=== PATIENT | male | born 1955 | race African-American/Black ===

== ENCOUNTER 2016-08-10 19:03 | Emergency (ER) | payer MEDICAID ==
[~2016-08-10] VITALS: Ht 167.6 cm; Wt 67.0 kg
[~2016-08-10 19:03] MED LIST: ALBUTEROL INH; ATEN-42 PO; CARI350T PO; CLOP75TA2 PO; DIPH25CA83 PO; HYDR-523 PO; OMEP20TA80 PO; TAMS-11 PO; TRAM50TA73 PO
[2016-08-10] MEDS ORDERED: ACETAMINOPHEN WITH CODEINE 300/30MG TABLET PO ONE (21:15)
[2016-08-10 22:05] VITALS: BP 140/89
== END 2016-08-10 22:05 | disposition home or self-care (01) ==
LOC: ER 20:15
DX: M54.2 Cervicalgia (principal); G89.29 Other chronic pain; I16.0 Hypertensive urgency; J45.909 Unspecified asthma, uncomplicated; F31.9 Bipolar disorder, unspecified; I10 Essential (primary) hypertension; G43.909 Migraine, unspecified, not intractable, without status migrainosus; Z88.6 Allergy status to analgesic agent; Z88.8 Allergy status to other drugs, medicaments and biological substances; Z79.1 Long term (current) use of non-steroidal anti-inflammatories (NSAID); Z79.899 Other long term (current) drug therapy; Z86.73 Personal history of transient ischemic attack (TIA), and cerebral infarction without residual deficits
CPT/HCPCS: 99283; Z7610

== ENCOUNTER 2017-02-21 11:09 | Emergency (ER) | payer MEDICAID ==
[~2017-02-21] VITALS: Ht 172.7 cm; Wt 60.0 kg
[~2017-02-21 11:09] MED LIST changes: +CLOP75TA15 PO; -CLOP75TA2 PO; +OMEP20TA2 PO; -OMEP20TA80 PO
[2017-02-21 11:21] VITALS: BP 143/100
== END 2017-02-21 18:07 | disposition left against medical advice (07) ==
LOC: ER 11:25
DX: M79.601 Pain in right arm (principal); Z53.21 Procedure and treatment not carried out due to patient leaving prior to being seen by health care provider

== ENCOUNTER 2018-12-14 11:13 | Emergency (ER) | payer MEDICAID ==
[~2018-12-14] VITALS: Ht 170.2 cm; Wt 69.0 kg
[~2018-12-14 11:13] MED LIST changes: -CARI350T PO; +S350 PO; -TRAM50TA73 PO; +TRAM50TA94 PO
[2018-12-14] MEDS ORDERED: HYDROCODONE/ACETAMINOPHEN 5/325MG TABLET PO ONE (14:45)
[2018-12-14 16:46] VITALS: BP 112/82
== END 2018-12-14 16:50 | disposition home or self-care (01) ==
LOC: ER 11:23
DX: R51 Headache (principal); M25.531 Pain in right wrist; R68.84 Jaw pain; M79.641 Pain in right hand; M25.511 Pain in right shoulder; R55 Syncope and collapse; I10 Essential (primary) hypertension; J45.909 Unspecified asthma, uncomplicated; F31.9 Bipolar disorder, unspecified; Z88.6 Allergy status to analgesic agent; Z88.8 Allergy status to other drugs, medicaments and biological substances; Z87.891 Personal history of nicotine dependence; Y00.XXXA Assault by blunt object, initial encounter; Y93.89 Activity, other specified; Y92.89 Other specified places as the place of occurrence of the external cause; Y99.8 Other external cause status
CPT/HCPCS: 70486; 73030; 73110; 73130; 99284

== ENCOUNTER 2019-03-29 21:18 | Inpatient (IN) | payer MEDICAID ==
[~2019-03-29] VITALS: Ht 167.6 cm; Wt 69.0 kg
[~2019-03-29 21:18] MED LIST changes: +CARI-166 PO; -S350 PO
[2019-03-29] MEDS ORDERED: SODIUM CHLORIDE 0.9% 1,000 ML IV ONE (22:31)
[2019-03-29 22:45] LABS: BASOPHILS % 0.9 % (0.0-2.0); EOSINOPHILS % 4.5 % (0.0-5.0); HEMATOCRIT. 39.1 % (42.0-52.0); HEMOGLOBIN. 12.8 g/dL (14.0-18.0); LYMPHOCYTES % 46.5 % (20.0-50.0); MEAN CORPUSCULAR HEMOGLOBIN 27.4 pg (28.0-32.0); MEAN PLATELET VOLUME 8.2 fl (7.4-10.4); MONOCYTES % 9.9 % (2.0-8.0); NEUTROPHILS % 38.2 % (40.0-76.0); PLATELET 196 x1000/uL (130-400); RED BLOOD CELL COUNT 4.65 mill/uL (4.7-6.1)
[2019-03-29 22:47] LABS: CHLORIDE 109 mEq/L (98-107)
[2019-03-29 22:51] LABS: ETHANOL BLOOD < 10 mg/dL
[2019-03-30 00:45] LABS: CLARITY URINE CLEAR (CLEAR); COLOR URINE YELLOW (YELLOW); KETONES URINE TRACE (NEGATIVE); LEUKOCYTE ESTERASE URINE NEGATIVE (NEGATIVE); NITRITE URINE NEGATIVE (NEGATIVE); OCCULT BLOOD URINE 1+ (NEGATIVE); PROTEIN URINE 2+ (NEGATIVE); SPECIFIC GRAVITY URINE 1.035 (1.005-1.030); UROBILINOGEN URINE 0.2 E.U./dL (0.2-1.0)
[2019-03-30 00:57] LABS: *BARBITURATES SCREEN URINE NEGATIVE (NEGATIVE); CANNABINOID URINE SCREEN PRESUMTIVE POSITIVE (NEGATIVE); METHADONE URINE SCREEN NEGATIVE (NEGATIVE); OPIATES URINE SCREEN PRESUMTIVE POSITIVE (NEGATIVE); PHENCYCLIDINE URINE SCREEN NEGATIVE (NEGATIVE)
[2019-03-30 00:58] LABS: *AMPHETAMINES SCREEN URINE NEGATIVE (NEGATIVE); *BENZODIAZEPINES SCREEN URINE NEGATIVE (NEGATIVE); *COCAINE SCREEN URINE PRESUMTIVE POSITIVE (NEGATIVE)
[2019-03-30] MEDS ORDERED: HYDROCODONE/ACETAMINOPHEN 5/325MG TABLET PO ONE (03:15)
[2019-03-30 04:00] VITALS: BP 120/80
[2019-03-30 05:30] VITALS: BP 120/80
[2019-03-30 08:28] VITALS: BP 121/88
[2019-03-30] MEDS ORDERED: ACETAMINOPHEN 325MG TABLET PO PRN (10:30)
[2019-03-30] MEDS: ATENOLOL 25MG TABLET PO SCH (10:30)
[2019-03-30] MEDS ORDERED: TRAMADOL 50MG TABLET PO PRN (10:30)
[2019-03-30] MEDS: CARISOPRODOL 350 MG TABLET PO SCH (10:53)
[2019-03-30] MEDS: CLOPIDOGREL 75MG TABLET PO SCH (10:53)
[2019-03-30] MEDS: HYDROCODONE/ACETAMINOPHEN 5/325MG TABLET PO PRN ×2 (10:54→20:46)
[2019-03-30 11:37] VITALS: BP 125/71
[2019-03-30] MEDS: ENOXAPARIN 40MG/0.4ML SYR SUBCUT SCH (12:44)
[2019-03-30 16:14] VITALS: BP 98/64
[2019-03-30 17:35] LABS: T4 FREE 1.01 ng/dL (0.76-1.46)
[2019-03-30 17:48] LABS: FOLIC ACID (FOLATE) SERUM 13.9 ng/mL (>5.38)
[2019-03-30 20:32] VITALS: BP 135/90
[2019-03-30] MEDS: DIPHENHYDRAMINE 50MG CAPSULE PO SCH (20:44)
[2019-03-30] MEDS: TAMSULOSIN HCL 0.4MG SR CAPSULE PO SCH (20:45)
[2019-03-31 00:42] VITALS: BP 138/83
[2019-03-31 04:00] VITALS: BP 117/78
[2019-03-31] MEDS: HYDROCODONE/ACETAMINOPHEN 5/325MG TABLET PO PRN ×3 (05:20→21:04)
[2019-03-31 07:01] LABS: CHLORIDE 108 mEq/L (98-107)
[2019-03-31 07:26] LABS: HDL CHOLESTEROL 42 mg/dL (40-59); LDL CHOLESTEROL 53 mg/dL (5-100)
[2019-03-31 07:56] LABS: BASOPHILS % 0.7 % (0.0-2.0); EOSINOPHILS % 6.7 % (0.0-5.0); HEMATOCRIT. 39.2 % (42.0-52.0); HEMOGLOBIN. 12.7 g/dL (14.0-18.0); LYMPHOCYTES % 52.5 % (20.0-50.0); MEAN CORPUSCULAR HEMOGLOBIN 27.4 pg (28.0-32.0); MEAN CORPUSCULAR VOLUME 84.3 fL (80.0-94.0); MEAN PLATELET VOLUME 8.6 fl (7.4-10.4); MONOCYTES % 11.7 % (2.0-8.0); NEUTROPHILS % 28.4 % (40.0-76.0); PLATELET 191 x1000/uL (130-400); RED BLOOD CELL COUNT 4.65 mill/uL (4.7-6.1); RED CELL DISTRIBUTION WIDTH 15.9 % (11.6-14.6)
[2019-03-31 08:07] VITALS: BP 125/77
[2019-03-31] MEDS: CARISOPRODOL 350 MG TABLET PO SCH (10:14)
[2019-03-31] MEDS: ATENOLOL 25MG TABLET PO SCH (10:15)
[2019-03-31] MEDS: CLOPIDOGREL 75MG TABLET PO SCH (10:15)
[2019-03-31 12:02] VITALS: BP 92/66
[2019-03-31] MEDS: ENOXAPARIN 40MG/0.4ML SYR SUBCUT SCH (14:42)
[2019-03-31] MEDS: CYANOCOBALAMIN 1000MCG/ML VIAL IM SCH (14:42)
[2019-03-31 16:00] VITALS: BP 121/86
[2019-03-31 20:21] VITALS: BP 124/55
[2019-03-31] MEDS: DIPHENHYDRAMINE 50MG CAPSULE PO SCH (21:02)
[2019-03-31] MEDS: TAMSULOSIN HCL 0.4MG SR CAPSULE PO SCH (21:03)
[2019-03-31] MEDS: ONDANSETRON HCL 4MG/2ML INJ IV PRN (22:30)
[2019-04-01 00:05] VITALS: BP 124/76
[2019-04-01 04:00] VITALS: BP 123/82
[2019-04-01] MEDS: HYDROCODONE/ACETAMINOPHEN 5/325MG TABLET PO PRN ×2 (05:31→11:54)
[2019-04-01 08:00] VITALS: BP 122/82
[2019-04-01] MEDS: CLOPIDOGREL 75MG TABLET PO SCH (09:13)
[2019-04-01] MEDS: CARISOPRODOL 350 MG TABLET PO SCH (09:13)
[2019-04-01] MEDS: ATENOLOL 25MG TABLET PO SCH (09:13)
[2019-04-01] MEDS: CYANOCOBALAMIN 1000MCG/ML VIAL IM SCH (09:14)
[2019-04-01] MEDS: ENOXAPARIN 40MG/0.4ML SYR SUBCUT SCH (11:53)
[2019-04-01 12:00] VITALS: BP 113/80
[2019-04-01] MEDS ORDERED: DEXAMETHASONE 4MG/ML 1ML VIAL IV SCH (13:00)
[2019-04-01] MEDS: HYDROCODONE/ACETAMINOPHEN 10/325MG TABLET PO PRN ×2 (14:57→20:25)
[2019-04-01 16:00] VITALS: BP 118/78
[2019-04-01 20:00] VITALS: BP 122/52
[2019-04-01] MEDS: TAMSULOSIN HCL 0.4MG SR CAPSULE PO SCH (20:22)
[2019-04-01] MEDS: DIPHENHYDRAMINE 50MG CAPSULE PO SCH (20:23)
[2019-04-01] MEDS: DEXAMETHASONE 4MG/ML 1ML VIAL IV SCH (21:42)
[2019-04-01] MEDS: LACTULOSE 20G/30ML UDC PO SCH (21:42)
[2019-04-02] VITALS: BP 109/66
[2019-04-02] MEDS: HYDROCODONE/ACETAMINOPHEN 10/325MG TABLET PO PRN ×4 (00:38→23:28)
[2019-04-02] MEDS: DEXAMETHASONE 4MG/ML 1ML VIAL IV SCH ×4 (03:02→21:42)
[2019-04-02 04:00] VITALS: BP 111/63
[2019-04-02] MEDS: LACTULOSE 20G/30ML UDC PO SCH ×3 (05:47→21:42)
[2019-04-02] MEDS ORDERED: MORPHINE SULFATE 2 MG/ML CPJ (NOT FOR IM USE) IV NR (06:45)
[2019-04-02 08:00] VITALS: BP 157/79
[2019-04-02] MEDS ORDERED: REGADENOSON 0.4 MG/5 ML IV ONE ×2 (08:47→09:15)
[2019-04-02] MEDS ORDERED: REGADENOSON 0.4 MG/5 ML IV NR (09:15)
[2019-04-02] MEDS: CARISOPRODOL 350 MG TABLET PO SCH (10:57)
[2019-04-02] MEDS: CYANOCOBALAMIN 1000MCG/ML VIAL IM SCH (10:59)
[2019-04-02] MEDS: ATENOLOL 25MG TABLET PO SCH (11:00)
[2019-04-02 12:00] VITALS: BP 130/74
[2019-04-02 16:00] VITALS: BP 113/74
[2019-04-02 20:00] VITALS: BP 96/55
[2019-04-02] MEDS: DIPHENHYDRAMINE 50MG CAPSULE PO SCH (21:43)
[2019-04-02] MEDS: TAMSULOSIN HCL 0.4MG SR CAPSULE PO SCH (21:45)
[2019-04-03] VITALS: BP 106/67
[2019-04-03] MEDS: DEXAMETHASONE 4MG/ML 1ML VIAL IV SCH ×4 (02:34→21:46)
[2019-04-03] MEDS: HYDROCODONE/ACETAMINOPHEN 10/325MG TABLET PO PRN ×5 (03:52→21:57)
[2019-04-03 04:00] VITALS: BP 111/69
[2019-04-03] MEDS: LACTULOSE 20G/30ML UDC PO SCH ×3 (06:13→21:46)
[2019-04-03 08:00] VITALS: BP 115/76
[2019-04-03 08:03] LABS: HEMOGLOBIN. 12.8 g/dL (14.0-18.0); MEAN CORPUSCULAR VOLUME 84.3 fL (80.0-94.0); MEAN PLATELET VOLUME 8.9 fl (7.4-10.4); PLATELET 219 x1000/uL (130-400); RED BLOOD CELL COUNT 4.75 mill/uL (4.7-6.1)
[2019-04-03 08:17] LABS: CHLORIDE 108 mEq/L (98-107)
[2019-04-03] MEDS: CARISOPRODOL 350 MG TABLET PO SCH (09:01)
[2019-04-03] MEDS: ATENOLOL 25MG TABLET PO SCH (09:03)
[2019-04-03] MEDS: CYANOCOBALAMIN 1000MCG/ML VIAL IM SCH (09:05)
[2019-04-03 12:00] VITALS: BP 109/67
[2019-04-03 13:48] LABS: NUCLEATED RED BLOOD CELLS 1 /100 WBC; PLATELET ESTIMATE NORMAL
[2019-04-03 16:00] VITALS: BP 111/75
[2019-04-03] MEDS: ONDANSETRON HCL 4MG/2ML INJ IV PRN (17:39)
[2019-04-03 20:00] VITALS: BP 122/74
[2019-04-03 20:16] LABS: TOTAL IRON BINDING CAPACITY 296 ug/dL (250-450)
[2019-04-03 20:26] LABS: FERRITIN 27 ng/mL (22-322)
[2019-04-03 20:37] LABS: HEPATITIS B SURFACE ANTIGEN NEGATIVE
[2019-04-03 21:06] LABS: HEPATITIS A AB IGM NEGATIVE (NEGATIVE)
[2019-04-03] MEDS: DIPHENHYDRAMINE 50MG CAPSULE PO SCH (21:46)
[2019-04-03] MEDS: TAMSULOSIN HCL 0.4MG SR CAPSULE PO SCH (21:49)
[2019-04-04] VITALS: BP 129/66
[2019-04-04 04:00] VITALS: BP 99/57
[2019-04-04] MEDS: DEXAMETHASONE 4MG/ML 1ML VIAL IV SCH ×4 (04:00→21:06)
[2019-04-04] MEDS: LACTULOSE 20G/30ML UDC PO SCH ×2 (05:59→14:00)
[2019-04-04 08:00] VITALS: BP 124/67
[2019-04-04] MEDS: CYANOCOBALAMIN 1000MCG/ML VIAL IM SCH (10:06)
[2019-04-04] MEDS: CARISOPRODOL 350 MG TABLET PO SCH (10:06)
[2019-04-04] MEDS: HYDROCODONE/ACETAMINOPHEN 10/325MG TABLET PO PRN ×3 (10:09→21:06)
[2019-04-04] MEDS: ATENOLOL 25MG TABLET PO SCH (10:09)
[2019-04-04] MEDS: ONDANSETRON HCL 4MG/2ML INJ IV PRN (10:18)
[2019-04-04 12:00] VITALS: BP 115/75
[2019-04-04 16:00] VITALS: BP 121/78
[2019-04-04 20:25] VITALS: BP 126/90
[2019-04-04] MEDS: TAMSULOSIN HCL 0.4MG SR CAPSULE PO SCH (21:06)
[2019-04-04] MEDS: DIPHENHYDRAMINE 50MG CAPSULE PO SCH (22:47)
[2019-04-05] VITALS (69 sets, daily range): BP systolic 89–173; BP diastolic 37–116
[2019-04-05] MEDS: DEXAMETHASONE 4MG/ML 1ML VIAL IV SCH ×4 (02:54→23:53)
[2019-04-05] MEDS: HYDROCODONE/ACETAMINOPHEN 10/325MG TABLET PO PRN (03:14)
[2019-04-05] MEDS ORDERED: THROMBIN (BOVINE) 5000 UNITS/VIAL TOP ONE (06:09)
[2019-04-05] MEDS ORDERED: NORMAL SALINE 0.9% 10 ML SYR ONE (06:09)
[2019-04-05] MEDS ORDERED: LIDOCAINE HCL/EPINEPHRINE 1%-EPI 1:100,000 20 ML VIAL ONE (06:10)
[2019-04-05] MEDS ORDERED: BACITRACIN 50,000 UNITS/VIAL ONE (06:10)
[2019-04-05] MEDS ORDERED: CLINDAMYCIN 900 MG PREMIX 50 ML IV ONE (07:00)
[2019-04-05] MEDS: ATENOLOL 25MG TABLET PO SCH (09:00)
[2019-04-05] MEDS: CARISOPRODOL 350 MG TABLET PO SCH (09:00)
[2019-04-05] MEDS ORDERED: LACTULOSE 20G/30ML UDC PO SCH (09:00)
[2019-04-05] MEDS ORDERED: HYDROMORPHONE HCL/PF 2MG/ML CPJ IV PRN (09:15)
[2019-04-05] MEDS ORDERED: LABETALOL 5MG/ML SYR 20 MG/4 ML SYRINGE IV PRN (09:15)
[2019-04-05] MEDS ORDERED: ONDANSETRON HCL 4MG/2ML INJ IV PRN (09:15)
[2019-04-05] MEDS ORDERED: MEPERIDINE HCL/PF 25MG/ML CPJ IV PRN (09:15)
[2019-04-05] MEDS ORDERED: ONDANSETRON INJ IV PRN (10:00)
[2019-04-05] MEDS ORDERED: NALOXONE INJ IV PRN (10:00)
[2019-04-05] MEDS ORDERED: HYDROMORPHONE PCA 10MG/50ML IV PRN (10:00)
[2019-04-05] MEDS: NICARDIPINE 100 MG in SODIUM CHLORIDE 0.9% 60 ML IV PRN ×2 (10:05→22:45)
[2019-04-05] MEDS: DEXT 5%/LACTATED RINGERS 1,000 ML IV SCH ×3 (11:07→21:15)
[2019-04-05] MEDS: ASCORBIC ACID 500 MG TABLET PO SCH ×2 (12:59→17:25)
[2019-04-05] MEDS: FERROUS SULFATE 325MG TABLET PO SCH ×2 (12:59→17:23)
[2019-04-05] MEDS: LACTULOSE 20G/30ML UDC PO SCH ×3 (12:59→17:23)
[2019-04-05] MEDS: CYANOCOBALAMIN 1000MCG/ML VIAL IM SCH (13:00)
[2019-04-05] MEDS: CLINDAMYCIN 600MG PREMIX 50 ML IV SCH ×2 (14:30→21:15)
[2019-04-05] MEDS: ONDANSETRON HCL 4MG/2ML INJ IV PRN (14:30)
[2019-04-05] MEDS: DIPHENHYDRAMINE INJ IV PRN ×2 (18:13→22:45)
[2019-04-05] MEDS: DIPHENHYDRAMINE 50MG CAPSULE PO SCH (19:54)
[2019-04-05] MEDS: TAMSULOSIN HCL 0.4MG SR CAPSULE PO SCH (19:54)
[2019-04-06] VITALS (52 sets, daily range): BP systolic 72–136; BP diastolic 21–93
[2019-04-06] MEDS: ASCORBIC ACID 500 MG TABLET PO SCH ×3 (05:45→17:19)
[2019-04-06] MEDS: FERROUS SULFATE 325MG TABLET PO SCH ×3 (05:45→17:19)
[2019-04-06] MEDS: DEXAMETHASONE 4MG/ML 1ML VIAL IV SCH (05:45)
[2019-04-06] MEDS: CLINDAMYCIN 600MG PREMIX 50 ML IV SCH ×2 (06:03→14:14)
[2019-04-06] MEDS: DEXT 5%/LACTATED RINGERS 1,000 ML IV SCH (08:39)
[2019-04-06] MEDS: CYANOCOBALAMIN 1000MCG/ML VIAL IM SCH (08:49)
[2019-04-06] MEDS: LACTULOSE 20G/30ML UDC PO SCH ×3 (08:49→17:19)
[2019-04-06] MEDS: CARISOPRODOL 350 MG TABLET PO SCH (08:51)
[2019-04-06] MEDS: ATENOLOL 25MG TABLET PO SCH (08:51)
[2019-04-06] MEDS ORDERED: DEXAMETHASONE 4MG/ML 1ML VIAL IV SCH (09:15)
[2019-04-06] MEDS ORDERED: CYCLOBENZAPRINE 10MG TABLET PO PRN (12:00)
[2019-04-06] MEDS: ONDANSETRON HCL 4MG/2ML INJ IV PRN (16:04)
[2019-04-06] MEDS: HYDROCODONE/ACETAMINOPHEN 5/325MG TABLET PO PRN (16:06)
[2019-04-06] MEDS: DIPHENHYDRAMINE 50MG CAPSULE PO SCH (21:12)
[2019-04-06] MEDS: TAMSULOSIN HCL 0.4MG SR CAPSULE PO SCH (21:13)
[2019-04-06] MEDS: MORPHINE SULFATE 2 MG/ML CPJ (NOT FOR IM USE) IV PRN (21:13)
[2019-04-07] VITALS: BP 152/88
[2019-04-07] MEDS: DEXT 5%/LACTATED RINGERS 1,000 ML IV SCH (00:49)
[2019-04-07] MEDS: HYDROCODONE/ACETAMINOPHEN 5/325MG TABLET PO PRN ×2 (00:50→06:33)
[2019-04-07 04:00] VITALS: BP 141/94
[2019-04-07] MEDS: MORPHINE SULFATE 2 MG/ML CPJ (NOT FOR IM USE) IV PRN (04:01)
[2019-04-07] MEDS ORDERED: HYDROCODONE/APAP 7.5/325MG 1 TAB TABLET PO PRN (07:45)
[2019-04-07 08:00] VITALS: BP 141/88
[2019-04-07] MEDS: FERROUS SULFATE 325MG TABLET PO SCH ×3 (08:39→18:19)
[2019-04-07] MEDS: CARISOPRODOL 350 MG TABLET PO SCH (08:39)
[2019-04-07] MEDS: ATENOLOL 25MG TABLET PO SCH (08:42)
[2019-04-07] MEDS: ASCORBIC ACID 500 MG TABLET PO SCH ×3 (08:43→18:19)
[2019-04-07] MEDS: LACTULOSE 20G/30ML UDC PO SCH ×5 (08:43→20:00)
[2019-04-07] MEDS ORDERED: MORPHINE SULFATE 2 MG/ML CPJ (NOT FOR IM USE) IV PRN (10:00)
[2019-04-07 12:00] VITALS: BP 117/74
[2019-04-07] MEDS ORDERED: BISACODYL 10MG SUPP PR PRN (15:15)
[2019-04-07] MEDS: HYDROCODONE/ACETAMINOPHEN 10/325MG TABLET PO PRN ×2 (15:30→22:39)
[2019-04-07 16:00] VITALS: BP 129/79
[2019-04-07] MEDS: DOCUSATE SODIUM 100MG CAPSULE PO SCH (18:19)
[2019-04-07 20:00] VITALS: BP 139/83
[2019-04-07] MEDS: DIPHENHYDRAMINE 50MG CAPSULE PO SCH (20:18)
[2019-04-07] MEDS: TAMSULOSIN HCL 0.4MG SR CAPSULE PO SCH (20:18)
[2019-04-07] MEDS: CARISOPRODOL 350 MG TABLET PO PRN (20:18)
[2019-04-08] VITALS: BP 158/78
[2019-04-08 04:00] VITALS: BP 137/75
[2019-04-08] MEDS: HYDROCODONE/ACETAMINOPHEN 10/325MG TABLET PO PRN ×3 (04:46→17:18)
[2019-04-08 08:00] VITALS: BP 153/110
[2019-04-08] MEDS ORDERED: CLOPIDOGREL 75MG TABLET PO SCH (09:00)
[2019-04-08] MEDS: LACTULOSE 20G/30ML UDC PO SCH ×4 (09:00→17:00)
[2019-04-08] MEDS: ASCORBIC ACID 500 MG TABLET PO SCH ×3 (09:33→17:18)
[2019-04-08] MEDS: CARISOPRODOL 350 MG TABLET PO SCH (09:33)
[2019-04-08] MEDS: FERROUS SULFATE 325MG TABLET PO SCH ×3 (09:34→17:19)
[2019-04-08] MEDS: DOCUSATE SODIUM 100MG CAPSULE PO SCH ×2 (09:34→17:19)
[2019-04-08] MEDS: ATENOLOL 25MG TABLET PO SCH (09:37)
[2019-04-08 12:00] VITALS: BP 115/73
[2019-04-08] MEDS ORDERED: POTASSIUM CHLORIDE 20MEQ TABLET SR PO ONE (15:00)
[2019-04-08 16:00] VITALS: BP 112/80
[2019-04-08 20:00] VITALS: BP 145/91
[2019-04-08] MEDS: CARISOPRODOL 350 MG TABLET PO PRN (20:01)
[2019-04-08] MEDS: TAMSULOSIN HCL 0.4MG SR CAPSULE PO SCH (21:02)
[2019-04-08] MEDS: DIPHENHYDRAMINE 50MG CAPSULE PO SCH (21:02)
[2019-04-08] MEDS ORDERED: MORPHINE SULFATE 2 MG/ML CPJ (NOT FOR IM USE) IV PRN (22:30)
[2019-04-09] VITALS (7 sets, daily range): BP systolic 95–155; BP diastolic 62–90
[2019-04-09] MEDS: HYDROCODONE/ACETAMINOPHEN 10/325MG TABLET PO PRN (03:05)
[2019-04-09] MEDS ORDERED: LORAZEPAM 2MG/ML CPJ IM PRN (06:30)
[2019-04-09] MEDS: ASCORBIC ACID 500 MG TABLET PO SCH ×3 (07:50→17:50)
[2019-04-09] MEDS: FERROUS SULFATE 325MG TABLET PO SCH ×3 (07:50→17:50)
[2019-04-09] MEDS ORDERED: LORAZEPAM 2MG/ML CPJ IM NR (08:00)
[2019-04-09] MEDS: CARISOPRODOL 350 MG TABLET PO SCH (09:00)
[2019-04-09] MEDS: LACTULOSE 20G/30ML UDC PO SCH ×3 (09:00→17:00)
[2019-04-09] MEDS: ATENOLOL 25MG TABLET PO SCH (09:00)
[2019-04-09] MEDS: DOCUSATE SODIUM 100MG CAPSULE PO SCH ×2 (09:00→17:00)
[2019-04-09 10:40] LABS: BASOPHILS % 0.4 % (0.0-2.0); EOSINOPHILS % 1.9 % (0.0-5.0); HEMATOCRIT. 36.3 % (42.0-52.0); HEMOGLOBIN. 11.7 g/dL (14.0-18.0); MEAN CORPUSCULAR HEMOGLOBIN 27.1 pg (28.0-32.0); MEAN CORPUSCULAR VOLUME 84.3 fL (80.0-94.0); MEAN PLATELET VOLUME 8.3 fl (7.4-10.4); MONOCYTES % 12.4 % (2.0-8.0); NEUTROPHILS % 63.3 % (40.0-76.0); PLATELET 175 x1000/uL (130-400); RED BLOOD CELL COUNT 4.31 mill/uL (4.7-6.1); RED CELL DISTRIBUTION WIDTH 16.2 % (11.6-14.6)
[2019-04-09 10:45] LABS: CHLORIDE 104 mEq/L (98-107)
[2019-04-09] MEDS ORDERED: HYDROCODONE/ACETAMINOPHEN 5/325MG TABLET PO PRN (17:45)
[2019-04-09] MEDS: DIPHENHYDRAMINE 50MG CAPSULE PO SCH (20:10)
[2019-04-09] MEDS: TAMSULOSIN HCL 0.4MG SR CAPSULE PO SCH (21:00)
[2019-04-09] MEDS: CARISOPRODOL 350 MG TABLET PO PRN (23:02)
[2019-04-10] MEDS: HYDROCODONE/ACETAMINOPHEN 10/325MG TABLET PO PRN (02:45)
[2019-04-10 04:00] VITALS: BP 100/59
[2019-04-13] MEDS ORDERED: CYANOCOBALAMIN 1000MCG/ML VIAL IM SCH (09:00)
[2019-04-14 06:09] LABS: 25-HYDROXY VITAMIN D3 12 ng/mL (.)
== END 2019-04-10 05:16 | disposition left against medical advice (07) | DRG 321 ==
LOC: ER 21:18 → 6WST 03-30 03:00 → EDBEDREQ 03-30 03:05 → EDBEDREQTM 03-30 03:05 → EDBEDREQDT 03-30 03:05 → ENRESERV 03-30 03:48 → 6WST 04-01 00:30 → MICUNO 04-05 09:22 → 6EST 04-06 14:25
PROVIDERS: ADMIT Internal Medicine; ATTEND Internal Medicine
PROC: 02HV33Z Insertion of Infusion Device into Superior Vena Cava, Percutaneous Approach (ICD-10-PCS; principal; 2019-04-05)
PROC: 0RG2071 Fusion of 2 or more Cervical Vertebral Joints with Autologous Tissue Substitute, Posterior Approach, Posterior Column, Open Approach (ICD-10-PCS; 2019-04-05)
PROC: B548ZZA Ultrasonography of Superior Vena Cava, Guidance (ICD-10-PCS; 2019-04-05)
PROC: 01N10ZZ Release Cervical Nerve, Open Approach (ICD-10-PCS; 2019-04-05)
PROC: 4A11X4G Monitoring of Peripheral Nervous Electrical Activity, Intraoperative, External Approach (ICD-10-PCS; 2019-04-05)
DX: M48.02 Spinal stenosis, cervical region (principal); G82.50 Quadriplegia, unspecified; G93.40 Encephalopathy, unspecified; G95.89 Other specified diseases of spinal cord; E72.20 Disorder of urea cycle metabolism, unspecified; I50.22 Chronic systolic (congestive) heart failure; I11.0 Hypertensive heart disease with heart failure; M47.12 Other spondylosis with myelopathy, cervical region; R13.10 Dysphagia, unspecified; R41.4 Neurologic neglect syndrome; E53.8 Deficiency of other specified B group vitamins; F14.10 Cocaine abuse, uncomplicated; J45.909 Unspecified asthma, uncomplicated; D72.819 Decreased white blood cell count, unspecified; D64.9 Anemia, unspecified; J44.9 Chronic obstructive pulmonary disease, unspecified; R74.0 Nonspecific elevation of levels of transaminase and lactic acid dehydrogenase [LDH]; R47.1 Dysarthria and anarthria; M47.22 Other spondylosis with radiculopathy, cervical region; M19.90 Unspecified osteoarthritis, unspecified site; M50.11 Cervical disc disorder with radiculopathy, high cervical region; Z53.29 Procedure and treatment not carried out because of patient's decision for other reasons; D72.829 Elevated white blood cell count, unspecified; M51.26 Other intervertebral disc displacement, lumbar region; R47.01 Aphasia; Z87.891 Personal history of nicotine dependence; Z88.8 Allergy status to other drugs, medicaments and biological substances; Z79.899 Other long term (current) drug therapy; I69.354 Hemiplegia and hemiparesis following cerebral infarction affecting left non-dominant side; Z91.19 Patient's noncompliance with other medical treatment and regimen
CPT/HCPCS: 36415; 70544; 70553; 71045; 72040; 72141; 76000; 76700; 76937; 78452; 80048; 80061; 80076; 80305; 80320; 81003; 82140; 82306; 82607; 82728; 82746; 82962; 83036; 83540; 83550; 84439; 84443; 84481; 84484; 86705; 86709; 86803; 87340; 92610; 93005; 93017; 93306; 93880; 93970; 96360; 96361; 97116; 97162; 97164; 97166; 97168; 97530; 97535; 99285; A9500; C1725; C1893; J1100; J1170; J1200; J1650; J2060; J2250; J2270; J2405; J2704; J2710; J2785; J3010; J3420; J3490; J7030; J7050; J7121; L0172; Q0163; G0480

== ENCOUNTER 2019-04-12 12:56 | Emergency (ER) | payer MEDICAID ==
[2019-04-12] MEDS ORDERED: SODIUM CHLORIDE 0.9% 1,000 ML IV ONE (14:58)
[2019-04-12] MEDS ORDERED: MORPHINE SULFATE 4 MG/ML CPJ (NOT FOR IM USE) IV STA (14:58)
[2019-04-12 15:10] LABS: BASOPHILS % 0.4 % (0.0-2.0); EOSINOPHILS % 0.9 % (0.0-5.0); HEMATOCRIT. 35.5 % (42.0-52.0); HEMOGLOBIN. 11.8 g/dL (14.0-18.0); LYMPHOCYTES % 14.8 % (20.0-50.0); MEAN CORPUSCULAR HEMOGLOBIN 27.7 pg (28.0-32.0); MEAN CORPUSCULAR VOLUME 83.1 fL (80.0-94.0); MEAN PLATELET VOLUME 7.9 fl (7.4-10.4); MONOCYTES % 7.5 % (2.0-8.0); NEUTROPHILS % 76.4 % (40.0-76.0); PLATELET 225 x1000/uL (130-400); RED BLOOD CELL COUNT 4.27 mill/uL (4.7-6.1); RED CELL DISTRIBUTION WIDTH 15.7 % (11.6-14.6)
[2019-04-12 15:15] LABS: CHLORIDE 101 mEq/L (98-107); INR 0.9; PROTHROMBIN TIME 9.3 sec (9.6-11.0)
[2019-04-12 18:01] VITALS: BP 115/75
== END 2019-04-12 18:03 | disposition home or self-care (01) ==
LOC: ER 12:56 → CANBEDREQ 18:32
DX: M54.2 Cervicalgia (principal); M19.90 Unspecified osteoarthritis, unspecified site; J45.909 Unspecified asthma, uncomplicated; I10 Essential (primary) hypertension; F12.10 Cannabis abuse, uncomplicated; Z87.891 Personal history of nicotine dependence; Z79.899 Other long term (current) drug therapy; Z88.6 Allergy status to analgesic agent; Z88.8 Allergy status to other drugs, medicaments and biological substances
CPT/HCPCS: 36415; 71045; 72125; 80053; 83605; 85025; 85610; 96374; 99284; J2270; J7030

== ENCOUNTER 2019-04-13 06:16 | Inpatient (IN) | payer MEDICAID ==
[~2019-04-13] VITALS: Ht 332.7 cm; Wt 78.0 kg
[~2019-04-13 06:16] MED LIST changes: -CARI-166 PO; +CARI350T28 PO
[2019-04-13] MEDS ORDERED: MORPHINE SULFATE 2 MG/ML CPJ (NOT FOR IM USE) IV ONE ×2 (08:45→12:15)
[2019-04-13 09:55] LABS: BASOPHILS % 0.6 % (0.0-2.0); EOSINOPHILS % 1.1 % (0.0-5.0); HEMATOCRIT. 37.1 % (42.0-52.0); HEMOGLOBIN. 12.2 g/dL (14.0-18.0); LYMPHOCYTES % 16.3 % (20.0-50.0); MEAN CORPUSCULAR HEMOGLOBIN 27.4 pg (28.0-32.0); MEAN CORPUSCULAR VOLUME 83.7 fL (80.0-94.0); MEAN PLATELET VOLUME 7.5 fl (7.4-10.4); MONOCYTES % 8.8 % (2.0-8.0); NEUTROPHILS % 73.2 % (40.0-76.0); PLATELET 255 x1000/uL (130-400); RED BLOOD CELL COUNT 4.44 mill/uL (4.7-6.1); RED CELL DISTRIBUTION WIDTH 15.8 % (11.6-14.6)
[2019-04-13 10:01] LABS: CHLORIDE 104 mEq/L (98-107)
[2019-04-13 21:40] VITALS: BP 143/97
[2019-04-13] MEDS ORDERED: ACETAMINOPHEN 325MG TABLET PO PRN (23:00)
[2019-04-13] MEDS: MORPHINE SULFATE 2 MG/ML CPJ (NOT FOR IM USE) IV PRN (23:16)
[2019-04-13 23:39] VITALS: BP 143/97
[2019-04-14] VITALS: BP 109/68
[2019-04-14 04:00] VITALS: BP 125/66
[2019-04-14] MEDS: MORPHINE SULFATE 2 MG/ML CPJ (NOT FOR IM USE) IV PRN ×3 (04:08→18:57)
[2019-04-14 07:31] LABS: BASOPHILS % 0.4 % (0.0-2.0); EOSINOPHILS % 2.6 % (0.0-5.0); HEMATOCRIT. 33.8 % (42.0-52.0); HEMOGLOBIN. 10.9 g/dL (14.0-18.0); MEAN CORPUSCULAR HEMOGLOBIN 27.1 pg (28.0-32.0); MEAN PLATELET VOLUME 7.5 fl (7.4-10.4); MONOCYTES % 10.5 % (2.0-8.0); NEUTROPHILS % 52.5 % (40.0-76.0); PLATELET 243 x1000/uL (130-400); RED BLOOD CELL COUNT 4.02 mill/uL (4.7-6.1); RED CELL DISTRIBUTION WIDTH 15.4 % (11.6-14.6)
[2019-04-14 07:41] LABS: CHLORIDE 108 mEq/L (98-107)
[2019-04-14 08:00] VITALS: BP 119/78
[2019-04-14] MEDS: LISINOPRIL 5MG TABLET PO SCH (08:42)
[2019-04-14] MEDS: ENOXAPARIN 40MG/0.4ML SYR SUBCUT SCH (08:42)
[2019-04-14] MEDS ORDERED: CYCL5TAB MT (09:00)
[2019-04-14] MEDS ORDERED: GABA-290 PO (09:00)
[2019-04-14] MEDS ORDERED: LISI40TA4 MT (09:00)
[2019-04-14] MEDS ORDERED: ALPR2TAB2 MT (09:00)
[2019-04-14] MEDS ORDERED: KETOROLAC 60MG/2ML VIAL IM ONE (10:00)
[2019-04-14] MEDS ORDERED: MORPHINE SULFATE 4 MG/ML CPJ (NOT FOR IM USE) IV NR (10:00)
[2019-04-14 12:00] VITALS: BP 116/80
[2019-04-14] MEDS: HYDROCODONE/ACETAMINOPHEN 5/325MG TABLET PO PRN ×2 (15:27→20:22)
[2019-04-14 16:00] VITALS: BP 111/64
[2019-04-14] MEDS: DOCUSATE SODIUM 100MG CAPSULE PO PRN (16:35)
[2019-04-14] MEDS ORDERED: MEDICATION NOT ON FORMULARY EA (Cyclobenzaprine Hcl 1 TAB) MT PRN (17:45)
[2019-04-14] MEDS ORDERED: ALBUTEROL INH PRN (17:45)
[2019-04-14] MEDS ORDERED: ALBUTEROL (0.083%) 2.5MG/3ML NEB HHN PRN (18:15)
[2019-04-14 20:00] VITALS: BP 125/86
[2019-04-14] MEDS: GABAPENTIN 300MG CAPSULE PO SCH (21:30)
[2019-04-14] MEDS: TAMSULOSIN HCL 0.4MG SR CAPSULE PO SCH (21:30)
[2019-04-15] VITALS: BP 109/83
[2019-04-15] MEDS: HYDROCODONE/ACETAMINOPHEN 5/325MG TABLET PO PRN ×5 (00:13→22:20)
[2019-04-15] MEDS: MORPHINE SULFATE 2 MG/ML CPJ (NOT FOR IM USE) IV PRN ×3 (03:37→16:28)
[2019-04-15 04:00] VITALS: BP 105/74
[2019-04-15 08:00] VITALS: BP 92/58
[2019-04-15 08:03] LABS: *AMPHETAMINES SCREEN URINE NEGATIVE (NEGATIVE); *BARBITURATES SCREEN URINE NEGATIVE (NEGATIVE); *BENZODIAZEPINES SCREEN URINE NEGATIVE (NEGATIVE); *COCAINE SCREEN URINE PRESUMTIVE POSITIVE (NEGATIVE)
[2019-04-15 08:04] LABS: CANNABINOID URINE SCREEN PRESUMTIVE POSITIVE (NEGATIVE); METHADONE URINE SCREEN NEGATIVE (NEGATIVE); OPIATES URINE SCREEN PRESUMTIVE POSITIVE (NEGATIVE); PHENCYCLIDINE URINE SCREEN NEGATIVE (NEGATIVE)
[2019-04-15] MEDS: LISINOPRIL 5MG TABLET PO SCH (09:00)
[2019-04-15] MEDS: ENOXAPARIN 40MG/0.4ML SYR SUBCUT SCH (09:07)
[2019-04-15] MEDS: GABAPENTIN 300MG CAPSULE PO SCH ×3 (09:07→22:19)
[2019-04-15 12:00] VITALS: BP 121/82
[2019-04-15 16:00] VITALS: BP 122/83
[2019-04-15] MEDS: DEXAMETHASONE 4MG/ML 1ML VIAL IV SCH (18:07)
[2019-04-15 20:00] VITALS: BP 130/80
[2019-04-15] MEDS: CYCLOBENZAPRINE 10MG TABLET PO PRN (20:25)
[2019-04-15] MEDS: TAMSULOSIN HCL 0.4MG SR CAPSULE PO SCH (22:19)
[2019-04-16] VITALS: BP 101/52
[2019-04-16] MEDS: DEXAMETHASONE 4MG/ML 1ML VIAL IV SCH ×4 (01:18→17:17)
[2019-04-16] MEDS: MORPHINE SULFATE 2 MG/ML CPJ (NOT FOR IM USE) IV PRN ×4 (01:19→20:35)
[2019-04-16] MEDS: HYDROCODONE/ACETAMINOPHEN 5/325MG TABLET PO PRN ×3 (03:59→18:40)
[2019-04-16 04:00] VITALS: BP 99/62
[2019-04-16] MEDS: GABAPENTIN 300MG CAPSULE PO SCH ×3 (06:47→20:32)
[2019-04-16 08:00] VITALS: BP 114/77
[2019-04-16] MEDS: LISINOPRIL 5MG TABLET PO SCH (08:46)
[2019-04-16] MEDS ORDERED: SODIUM BICARBONATE 4% (2.4MEQ) 5ML VIAL IV ONE (10:37)
[2019-04-16] MEDS ORDERED: LIDOCAINE HCL 1% 20ML VIAL (Pyxis) INJ ONE (10:37)
[2019-04-16 10:40] LABS: INR 0.9; PARTIAL THROMBOPLASTIN TIME 29.6 sec (23.4-31.0); PROTHROMBIN TIME 9.4 sec (9.6-11.0)
[2019-04-16 12:00] VITALS: BP 118/84
[2019-04-16 16:00] VITALS: BP 107/76
[2019-04-16 20:00] VITALS: BP 113/75
[2019-04-16] MEDS: TAMSULOSIN HCL 0.4MG SR CAPSULE PO SCH (20:33)
[2019-04-17] VITALS: BP 106/66
[2019-04-17] MEDS: DEXAMETHASONE 4MG/ML 1ML VIAL IV SCH ×4 (00:11→17:40)
[2019-04-17] MEDS: HYDROCODONE/ACETAMINOPHEN 5/325MG TABLET PO PRN ×4 (00:12→17:41)
[2019-04-17] MEDS: MORPHINE SULFATE 2 MG/ML CPJ (NOT FOR IM USE) IV PRN ×4 (02:53→23:01)
[2019-04-17 04:00] VITALS: BP 95/62
[2019-04-17] MEDS: GABAPENTIN 300MG CAPSULE PO SCH ×3 (06:39→21:04)
[2019-04-17 08:00] VITALS: BP 117/80
[2019-04-17] MEDS: LISINOPRIL 5MG TABLET PO SCH (08:58)
[2019-04-17] MEDS: CYCLOBENZAPRINE 10MG TABLET PO PRN (09:07)
[2019-04-17 11:39] VITALS: BP 104/62
[2019-04-17 16:00] VITALS: BP 108/68
[2019-04-17 20:00] VITALS: BP 131/71
[2019-04-17] MEDS: TAMSULOSIN HCL 0.4MG SR CAPSULE PO SCH (21:04)
[2019-04-18] VITALS: BP 114/71
[2019-04-18] MEDS: HYDROCODONE/ACETAMINOPHEN 5/325MG TABLET PO PRN ×3 (02:23→15:20)
[2019-04-18 04:00] VITALS: BP 101/66
[2019-04-18] MEDS: GABAPENTIN 300MG CAPSULE PO SCH ×3 (05:29→20:37)
[2019-04-18] MEDS: MORPHINE SULFATE 2 MG/ML CPJ (NOT FOR IM USE) IV PRN ×3 (05:30→20:22)
[2019-04-18 08:00] VITALS: BP 108/74
[2019-04-18] MEDS: CYCLOBENZAPRINE 10MG TABLET PO PRN (08:24)
[2019-04-18] MEDS: LISINOPRIL 5MG TABLET PO SCH (08:24)
[2019-04-18 12:00] VITALS: BP 102/69
[2019-04-18 16:00] VITALS: BP 106/69
[2019-04-18 20:00] VITALS: BP 98/62
[2019-04-18] MEDS: TAMSULOSIN HCL 0.4MG SR CAPSULE PO SCH (20:37)
[2019-04-18] MEDS: ONDANSETRON HCL 4MG/2ML INJ IV PRN (23:28)
[2019-04-18] MEDS: ZOLPIDEM TARTRATE 5MG TABLET PO PRN (23:29)
[2019-04-19] VITALS: BP 85/57
[2019-04-19] MEDS: MORPHINE SULFATE 4 MG/ML CPJ (NOT FOR IM USE) IV PRN ×4 (00:15→22:03)
[2019-04-19 04:00] VITALS: BP 81/52
[2019-04-19] MEDS: GABAPENTIN 300MG CAPSULE PO SCH ×3 (05:43→20:28)
[2019-04-19 07:19] LABS: BASOPHILS % 0.8 % (0.0-2.0); EOSINOPHILS % 1.3 % (0.0-5.0); HEMATOCRIT. 31.7 % (42.0-52.0); HEMOGLOBIN. 10.2 g/dL (14.0-18.0); LYMPHOCYTES % 42.8 % (20.0-50.0); MEAN CORPUSCULAR HEMOGLOBIN 26.8 pg (28.0-32.0); MEAN CORPUSCULAR VOLUME 83.8 fL (80.0-94.0); MEAN PLATELET VOLUME 7.2 fl (7.4-10.4); MONOCYTES % 7.4 % (2.0-8.0); NEUTROPHILS % 47.7 % (40.0-76.0); PLATELET 353 x1000/uL (130-400); RED BLOOD CELL COUNT 3.79 mill/uL (4.7-6.1); RED CELL DISTRIBUTION WIDTH 16.1 % (11.6-14.6)
[2019-04-19 07:30] LABS: CHLORIDE 106 mEq/L (98-107)
[2019-04-19 07:51] LABS: PHOSPHORUS 2.9 mg/dL (2.5-4.9)
[2019-04-19 08:00] VITALS: BP 99/67
[2019-04-19] MEDS: LISINOPRIL 5MG TABLET PO SCH (08:12)
[2019-04-19] MEDS: HYDROCODONE/ACETAMINOPHEN 5/325MG TABLET PO PRN (08:16)
[2019-04-19] MEDS ORDERED: DEXT 5%/LACTATED RINGERS 1,000 ML IV SCH (08:30)
[2019-04-19] MEDS: DEXAMETHASONE 4MG/ML 1ML VIAL IV SCH ×2 (11:42→17:17)
[2019-04-19] MEDS: OXYCODONE HCL 5MG TABLET PO PRN ×2 (11:42→17:17)
[2019-04-19 12:00] VITALS: BP 134/83
[2019-04-19 16:00] VITALS: BP 106/65
[2019-04-19] MEDS: ONDANSETRON HCL 4MG/2ML INJ IV PRN (16:00)
[2019-04-19 20:00] VITALS: BP 125/88
[2019-04-19] MEDS: TAMSULOSIN HCL 0.4MG SR CAPSULE PO SCH (20:29)
[2019-04-19] MEDS: DEXT 5%/LACTATED RINGERS 1,000 ML IV SCH (20:30)
[2019-04-19] MEDS: ZOLPIDEM TARTRATE 5MG TABLET PO PRN (21:58)
[2019-04-20] VITALS (50 sets, daily range): BP systolic 100–146; BP diastolic 58–102
[2019-04-20] MEDS: DEXAMETHASONE 4MG/ML 1ML VIAL IV SCH ×4 (01:29→17:26)
[2019-04-20] MEDS: MORPHINE SULFATE 4 MG/ML CPJ (NOT FOR IM USE) IV PRN ×4 (01:34→12:06)
[2019-04-20] MEDS: ONDANSETRON HCL 4MG/2ML INJ IV PRN ×3 (04:12→20:47)
[2019-04-20] MEDS: GABAPENTIN 300MG CAPSULE PO SCH ×3 (05:34→20:53)
[2019-04-20] MEDS: DEXT 5%/LACTATED RINGERS 1,000 ML IV SCH ×2 (06:02→11:25)
[2019-04-20] MEDS ORDERED: THROMBIN (BOVINE) 5000 UNITS/VIAL TOP ONE ×2 (08:01→08:02)
[2019-04-20] MEDS ORDERED: BACITRACIN 15GM TUBE TOP ONE (08:01)
[2019-04-20] MEDS ORDERED: BACITRACIN 50,000 UNITS/VIAL ONE ×2 (08:02→08:03)
[2019-04-20] MEDS ORDERED: LIDOCAINE HCL/EPINEPHRINE 1%-EPI 1:100,000 20 ML VIAL ONE (08:02)
[2019-04-20] MEDS: LISINOPRIL 5MG TABLET PO SCH (08:21)
[2019-04-20] MEDS ORDERED: FENTANYL CITRATE/PF 50MCG/ML 2ML VIAL ONE ×2 (09:43→09:44)
[2019-04-20] MEDS ORDERED: MIDAZOLAM HCL 2 MG/2 ML VIAL ONE (09:44)
[2019-04-20] MEDS ORDERED: NEOSTIGMINE METHYLSULFATE 1MG/ML 10 ML VIAL ONE (09:44)
[2019-04-20] MEDS ORDERED: ROCURONIUM BROMIDE 10MG/ML VIAL 5ML IV ONE (09:44)
[2019-04-20] MEDS ORDERED: GLYCOPYRROLATE 0.2 MG/ML 2ML VIAL ONE (09:44)
[2019-04-20] MEDS ORDERED: PROPOFOL 200MG/20ML VIAL IV ONE (09:44)
[2019-04-20] MEDS ORDERED: DEXAMETHASONE 4MG/ML 1ML VIAL ONE (09:47)
[2019-04-20] MEDS ORDERED: ONDANSETRON HCL 4MG/2ML INJ ONE (09:48)
[2019-04-20] MEDS ORDERED: CLINDAMYCIN 900 MG PREMIX 50 ML IV ONE (09:56)
[2019-04-20] MEDS ORDERED: HYDROMORPHONE HCL/PF 2MG/ML (OR) ONE (10:13)
[2019-04-20] MEDS ORDERED: NITROPRUSSIDE 100 MG in DEXT 5% WATER 250 ML IV PRN (11:00)
[2019-04-20] MEDS ORDERED: CLINDAMYCIN 600 MG in DEXTROSE 5% WATER 50 ML IV SCH (11:00)
[2019-04-20] MEDS ORDERED: HYDROMORPHONE PCA 10MG/50ML IV PRN (12:00)
[2019-04-20] MEDS ORDERED: ONDANSETRON INJ IV PRN (12:00)
[2019-04-20] MEDS ORDERED: NALOXONE INJ IV PRN (12:00)
[2019-04-20] MEDS: DIPHENHYDRAMINE 50MG/ML VIAL IV PRN (12:34)
[2019-04-20] MEDS ORDERED: CLINDAMYCIN 600MG PREMIX 50 ML IV SCH (14:00)
[2019-04-20] MEDS ORDERED: VANCOMYCIN 1250MG in DEXTROSE 5% WATER 250ML IV SCH (16:00)
[2019-04-20] MEDS: TAMSULOSIN HCL 0.4MG SR CAPSULE PO SCH (20:48)
[2019-04-21] VITALS (92 sets, daily range): BP systolic 90–146; BP diastolic 40–108
[2019-04-21] MEDS: DEXAMETHASONE 4MG/ML 1ML VIAL IV SCH ×3 (00:33→12:20)
[2019-04-21] MEDS: DIPHENHYDRAMINE 50MG/ML VIAL IV PRN ×3 (03:15→23:57)
[2019-04-21] MEDS: DEXT 5%/LACTATED RINGERS 1,000 ML IV SCH ×3 (03:23→17:18)
[2019-04-21] MEDS ORDERED: VANCOMYCIN 1 G PREMIX 200 ML IV SCH (04:00)
[2019-04-21] MEDS: GABAPENTIN 300MG CAPSULE PO SCH ×3 (06:50→22:14)
[2019-04-21] MEDS: LISINOPRIL 5MG TABLET PO SCH (08:04)
[2019-04-21] MEDS: ONDANSETRON HCL 4MG/2ML INJ IV PRN ×2 (08:09→23:56)
[2019-04-21 11:08] LABS: HEMATOCRIT. 32.7 % (42.0-52.0); HEMOGLOBIN. 10.7 g/dL (14.0-18.0); MEAN CORPUSCULAR HEMOGLOBIN 27.3 pg (28.0-32.0); MEAN CORPUSCULAR VOLUME 83.3 fL (80.0-94.0); MEAN PLATELET VOLUME 7.6 fl (7.4-10.4); PLATELET 380 x1000/uL (130-400); RED BLOOD CELL COUNT 3.92 mill/uL (4.7-6.1); RED CELL DISTRIBUTION WIDTH 16.3 % (11.6-14.6)
[2019-04-21 11:40] LABS: CHLORIDE 104 mEq/L (98-107)
[2019-04-21 11:46] LABS: PHOSPHORUS 3.1 mg/dL (2.5-4.9)
[2019-04-21] MEDS: CYCLOBENZAPRINE 10MG TABLET PO PRN ×2 (12:20→17:18)
[2019-04-21] MEDS: VANCOMYCIN 1 G PREMIX 200 ML IV SCH (17:18)
[2019-04-21 19:03] LABS: PLATELET ESTIMATE NORMAL
[2019-04-21] MEDS: TAMSULOSIN HCL 0.4MG SR CAPSULE PO SCH (22:15)
[2019-04-22] VITALS (45 sets, daily range): BP systolic 83–138; BP diastolic 50–90
[2019-04-22] MEDS: ONDANSETRON HCL 4MG/2ML INJ IV PRN (04:50)
[2019-04-22] MEDS: DEXT 5%/LACTATED RINGERS 1,000 ML IV SCH ×2 (04:51→13:28)
[2019-04-22 05:15] LABS: BASOPHILS % 0.1 % (0.0-2.0); HEMATOCRIT. 31.7 % (42.0-52.0); HEMOGLOBIN. 10.2 g/dL (14.0-18.0); LYMPHOCYTES % 11.9 % (20.0-50.0); MEAN CORPUSCULAR HEMOGLOBIN 26.7 pg (28.0-32.0); MEAN CORPUSCULAR VOLUME 82.7 fL (80.0-94.0); MEAN PLATELET VOLUME 7.1 fl (7.4-10.4); MONOCYTES % 7.1 % (2.0-8.0); NEUTROPHILS % 80.9 % (40.0-76.0); PLATELET 335 x1000/uL (130-400); RED BLOOD CELL COUNT 3.83 mill/uL (4.7-6.1); RED CELL DISTRIBUTION WIDTH 16.2 % (11.6-14.6)
[2019-04-22 05:22] LABS: CHLORIDE 104 mEq/L (98-107)
[2019-04-22 05:32] LABS: VANCOMYCIN TROUGH 12.2 ug/mL (5.0-10.0)
[2019-04-22] MEDS: VANCOMYCIN 1 G PREMIX 200 ML IV SCH (06:47)
[2019-04-22] MEDS: GABAPENTIN 300MG CAPSULE PO SCH ×3 (06:48→22:52)
[2019-04-22] MEDS ORDERED: OMEPRAZOLE 20MG CAPSULE EXTENDED RELEASE PO SCH (08:30)
[2019-04-22] MEDS: LISINOPRIL 5MG TABLET PO SCH (08:39)
[2019-04-22] MEDS: CYCLOBENZAPRINE 10MG TABLET PO PRN ×2 (08:39→13:29)
[2019-04-22] MEDS: DOCUSATE SODIUM 100MG CAPSULE PO PRN ×2 (08:51→13:29)
[2019-04-22] MEDS: LIDOCAINE 5% PATCH TOP PRN (11:07)
[2019-04-22] MEDS: OXYCODONE HCL 5MG TABLET PO PRN ×2 (15:53→20:04)
[2019-04-22] MEDS: OMEPRAZOLE 20MG CAPSULE EXTENDED RELEASE PO SCH (15:53)
[2019-04-22] MEDS ORDERED: VANCOMYCIN 1250MG in DEXTROSE 5% WATER 250ML IV SCH (18:00)
[2019-04-22] MEDS: MORPHINE SULFATE 4 MG/ML CPJ (NOT FOR IM USE) IV PRN (18:43)
[2019-04-22] MEDS: CARISOPRODOL 350 MG TABLET PO PRN (23:00)
[2019-04-22] MEDS: TAMSULOSIN HCL 0.4MG SR CAPSULE PO SCH (23:01)
[2019-04-23] VITALS: BP 107/66
[2019-04-23] MEDS: MORPHINE SULFATE 4 MG/ML CPJ (NOT FOR IM USE) IV PRN ×4 (00:22→21:57)
[2019-04-23] MEDS: DEXT 5%/LACTATED RINGERS 1,000 ML IV SCH ×3 (00:42→19:00)
[2019-04-23] MEDS: VANCOMYCIN 1,250 MG in DEXT 5% WATER 250 ML IV SCH ×2 (02:21→14:44)
[2019-04-23] MEDS: OXYCODONE HCL 5MG TABLET PO PRN ×5 (02:22→23:02)
[2019-04-23 04:00] VITALS: BP 110/73
[2019-04-23] MEDS: GABAPENTIN 300MG CAPSULE PO SCH ×3 (06:22→21:39)
[2019-04-23] MEDS: OMEPRAZOLE 20MG CAPSULE EXTENDED RELEASE PO SCH (06:22)
[2019-04-23 08:00] VITALS: BP 108/75
[2019-04-23] MEDS: LISINOPRIL 5MG TABLET PO SCH (08:43)
[2019-04-23 12:00] VITALS: BP 113/68
[2019-04-23] MEDS: CARISOPRODOL 350 MG TABLET PO PRN (12:05)
[2019-04-23 16:00] VITALS: BP 120/88
[2019-04-23 20:00] VITALS: BP 111/74
[2019-04-23] MEDS: TAMSULOSIN HCL 0.4MG SR CAPSULE PO SCH (21:39)
[2019-04-23] MEDS: ZOLPIDEM TARTRATE 5MG TABLET PO PRN (21:57)
[2019-04-23] MEDS: ONDANSETRON HCL 4MG/2ML INJ IV PRN (21:57)
[2019-04-23] MEDS: DIPHENHYDRAMINE 50MG/ML VIAL IV PRN (21:57)
[2019-04-23] MEDS: LIDOCAINE 5% PATCH TOP PRN (22:29)
[2019-04-24] VITALS: BP 95/64
[2019-04-24] MEDS: VANCOMYCIN 1,250 MG in DEXT 5% WATER 250 ML IV SCH ×2 (01:34→14:04)
[2019-04-24] MEDS: OXYCODONE HCL 5MG TABLET PO PRN ×4 (03:26→20:58)
[2019-04-24 04:00] VITALS: BP 105/61
[2019-04-24] MEDS: DIPHENHYDRAMINE 50MG/ML VIAL IV PRN ×3 (04:02→18:37)
[2019-04-24] MEDS: ONDANSETRON HCL 4MG/2ML INJ IV PRN ×3 (04:02→22:09)
[2019-04-24] MEDS: DEXT 5%/LACTATED RINGERS 1,000 ML IV SCH ×2 (04:08→16:24)
[2019-04-24] MEDS: DOCUSATE SODIUM 100MG CAPSULE PO PRN ×2 (05:59→11:37)
[2019-04-24] MEDS: OMEPRAZOLE 20MG CAPSULE EXTENDED RELEASE PO SCH (05:59)
[2019-04-24] MEDS: GABAPENTIN 300MG CAPSULE PO SCH ×3 (05:59→21:00)
[2019-04-24] MEDS ORDERED: MORPHINE SULFATE 4 MG/ML CPJ (NOT FOR IM USE) IV PRN (06:15)
[2019-04-24 08:00] VITALS: BP 116/66
[2019-04-24] MEDS: LISINOPRIL 5MG TABLET PO SCH (08:34)
[2019-04-24] MEDS ORDERED: LIDOCAINE 5% PATCH TOP SCH (09:00)
[2019-04-24] MEDS: MORPHINE SULFATE 4 MG/ML CPJ (NOT FOR IM USE) IV PRN ×2 (11:45→17:19)
[2019-04-24 11:50] VITALS: BP 105/63
[2019-04-24] MEDS ORDERED: BISACODYL 10MG SUPP PR PRN (13:30)
[2019-04-24] MEDS: POLYETHYLENE GLYCOL 3350 (17GM) 1 DOSE PACK PO SCH (14:04)
[2019-04-24 16:00] VITALS: BP 110/66
[2019-04-24] MEDS: CARISOPRODOL 350 MG TABLET PO PRN (16:24)
[2019-04-24] MEDS ORDERED: DOCUSATE SODIUM 100MG CAPSULE PO SCH (17:00)
[2019-04-24 20:00] VITALS: BP 112/60
[2019-04-24] MEDS: TAMSULOSIN HCL 0.4MG SR CAPSULE PO SCH (20:57)
[2019-04-25] VITALS: BP 120/80
[2019-04-25] MEDS: MORPHINE SULFATE 4 MG/ML CPJ (NOT FOR IM USE) IV PRN ×4 (00:28→23:31)
[2019-04-25] MEDS: VANCOMYCIN 1,250 MG in DEXT 5% WATER 250 ML IV SCH ×2 (02:37→14:13)
[2019-04-25] MEDS: DEXT 5%/LACTATED RINGERS 1,000 ML IV SCH ×2 (02:37→10:15)
[2019-04-25] MEDS: OXYCODONE HCL 5MG TABLET PO PRN ×4 (02:38→16:21)
[2019-04-25 04:00] VITALS: BP 115/60
[2019-04-25] MEDS: GABAPENTIN 300MG CAPSULE PO SCH ×3 (05:06→22:50)
[2019-04-25] MEDS: ONDANSETRON HCL 4MG/2ML INJ IV PRN ×3 (05:06→20:42)
[2019-04-25] MEDS: OMEPRAZOLE 20MG CAPSULE EXTENDED RELEASE PO SCH (05:53)
[2019-04-25] MEDS: POLYETHYLENE GLYCOL 3350 (17GM) 1 DOSE PACK PO SCH (07:34)
[2019-04-25 08:00] VITALS: BP 126/80
[2019-04-25] MEDS: LIDOCAINE 5% PATCH TOP SCH ×2 (08:43→08:56)
[2019-04-25] MEDS: LISINOPRIL 5MG TABLET PO SCH (08:44)
[2019-04-25 12:00] VITALS: BP 109/91
[2019-04-25] MEDS: CARISOPRODOL 350 MG TABLET PO PRN (15:04)
[2019-04-25 16:00] VITALS: BP 110/74
[2019-04-25 20:00] VITALS: BP 110/75
[2019-04-25] MEDS: DIPHENHYDRAMINE 50MG/ML VIAL IV PRN (20:04)
[2019-04-25] MEDS: TAMSULOSIN HCL 0.4MG SR CAPSULE PO SCH (20:04)
[2019-04-26] VITALS: BP 114/73
[2019-04-26] MEDS: DEXT 5%/LACTATED RINGERS 1,000 ML IV SCH ×3 (01:14→17:18)
[2019-04-26] MEDS: VANCOMYCIN 1,250 MG in DEXT 5% WATER 250 ML IV SCH ×2 (01:14→14:13)
[2019-04-26] MEDS: OXYCODONE HCL 5MG TABLET PO PRN ×5 (01:14→21:49)
[2019-04-26] MEDS: MORPHINE SULFATE 4 MG/ML CPJ (NOT FOR IM USE) IV PRN ×2 (03:29→05:43)
[2019-04-26] MEDS: DIPHENHYDRAMINE 50MG/ML VIAL IV PRN ×2 (03:42→18:52)
[2019-04-26 04:00] VITALS: BP 102/63
[2019-04-26] MEDS: OMEPRAZOLE 20MG CAPSULE EXTENDED RELEASE PO SCH (05:11)
[2019-04-26] MEDS: GABAPENTIN 300MG CAPSULE PO SCH ×3 (05:12→22:22)
[2019-04-26 07:07] LABS: CHLORIDE 102 mEq/L (98-107)
[2019-04-26] MEDS: POLYETHYLENE GLYCOL 3350 (17GM) 1 DOSE PACK PO SCH (08:23)
[2019-04-26] MEDS: LIDOCAINE 5% PATCH TOP SCH (08:23)
[2019-04-26] MEDS: LISINOPRIL 5MG TABLET PO SCH (08:24)
[2019-04-26] MEDS: ONDANSETRON HCL 4MG/2ML INJ IV PRN ×2 (08:39→18:46)
[2019-04-26 12:00] VITALS: BP 111/63
[2019-04-26] MEDS: CARISOPRODOL 350 MG TABLET PO PRN (14:23)
[2019-04-26 16:00] VITALS: BP 116/76
[2019-04-26 20:00] VITALS: BP 114/76
[2019-04-26] MEDS: TAMSULOSIN HCL 0.4MG SR CAPSULE PO SCH (21:32)
[2019-04-26] MEDS: FAMOTIDINE 20MG TABLET PO SCH (22:22)
[2019-04-27] VITALS: BP 120/77
[2019-04-27] MEDS: VANCOMYCIN 1,250 MG in DEXT 5% WATER 250 ML IV SCH ×2 (02:28→14:00)
[2019-04-27 04:00] VITALS: BP 110/71
[2019-04-27] MEDS: OXYCODONE HCL 5MG TABLET PO PRN ×5 (04:34→22:09)
[2019-04-27] MEDS: GABAPENTIN 300MG CAPSULE PO SCH ×3 (06:27→21:57)
[2019-04-27 07:52] LABS: BASOPHILS % 0.7 % (0.0-2.0); EOSINOPHILS % 3.7 % (0.0-5.0); HEMOGLOBIN. 9.8 g/dL (14.0-18.0); LYMPHOCYTES % 29.5 % (20.0-50.0); MEAN CORPUSCULAR HEMOGLOBIN 27.1 pg (28.0-32.0); MEAN CORPUSCULAR VOLUME 82.8 fL (80.0-94.0); MEAN PLATELET VOLUME 7.4 fl (7.4-10.4); MONOCYTES % 14.5 % (2.0-8.0); NEUTROPHILS % 51.6 % (40.0-76.0); PLATELET 268 x1000/uL (130-400); RED BLOOD CELL COUNT 3.63 mill/uL (4.7-6.1); RED CELL DISTRIBUTION WIDTH 16.1 % (11.6-14.6)
[2019-04-27 07:58] LABS: CHLORIDE 103 mEq/L (98-107)
[2019-04-27 08:00] VITALS: BP 121/79
[2019-04-27] MEDS: POLYETHYLENE GLYCOL 3350 (17GM) 1 DOSE PACK PO SCH (08:36)
[2019-04-27] MEDS: FAMOTIDINE 20MG TABLET PO SCH ×2 (08:36→21:57)
[2019-04-27] MEDS: LISINOPRIL 5MG TABLET PO SCH (08:36)
[2019-04-27] MEDS: LIDOCAINE 5% PATCH TOP SCH (08:37)
[2019-04-27 12:00] VITALS: BP 113/74
[2019-04-27] MEDS: LACTULOSE 20G/30ML UDC PO SCH ×3 (14:00→21:57)
[2019-04-27 16:00] VITALS: BP 129/89
[2019-04-27] MEDS: DOCUSATE SODIUM 100MG CAPSULE PO SCH (17:22)
[2019-04-27] MEDS: CARISOPRODOL 350 MG TABLET PO PRN (17:26)
[2019-04-27] MEDS: ONDANSETRON HCL 4MG/2ML INJ IV PRN (19:11)
[2019-04-27 20:00] VITALS: BP 124/91
[2019-04-27] MEDS: DIPHENHYDRAMINE 50MG/ML VIAL IV PRN (21:02)
[2019-04-27] MEDS: TAMSULOSIN HCL 0.4MG SR CAPSULE PO SCH (21:57)
[2019-04-28] VITALS: BP 117/80
[2019-04-28] MEDS: VANCOMYCIN 1,250 MG in DEXT 5% WATER 250 ML IV SCH ×2 (01:00→15:16)
[2019-04-28] MEDS: ONDANSETRON HCL 4MG/2ML INJ IV PRN ×2 (01:07→21:42)
[2019-04-28 08:00] VITALS: BP 135/93
[2019-04-28] MEDS: POLYETHYLENE GLYCOL 3350 (17GM) 1 DOSE PACK PO SCH ×2 (09:00→09:20)
[2019-04-28] MEDS: LISINOPRIL 5MG TABLET PO SCH (09:20)
[2019-04-28] MEDS: FAMOTIDINE 20MG TABLET PO SCH (09:20)
[2019-04-28] MEDS: DOCUSATE SODIUM 100MG CAPSULE PO SCH ×2 (09:20→17:00)
[2019-04-28] MEDS: LIDOCAINE 5% PATCH TOP SCH (09:22)
[2019-04-28] MEDS: OXYCODONE HCL 5MG TABLET PO PRN ×3 (09:29→20:38)
[2019-04-28] MEDS: OMEPRAZOLE 20MG CAPSULE EXTENDED RELEASE PO SCH (10:26)
[2019-04-28 12:00] VITALS: BP 119/86
[2019-04-28] MEDS: CARISOPRODOL 350 MG TABLET PO PRN (12:21)
[2019-04-28] MEDS: LACTULOSE 20G/30ML UDC PO SCH ×2 (15:16→19:00)
[2019-04-28] MEDS: GABAPENTIN 300MG CAPSULE PO SCH ×2 (15:17→21:41)
[2019-04-28] MEDS: BISACODYL 10MG SUPP PR SCH (15:17)
[2019-04-28 16:00] VITALS: BP 121/84
[2019-04-28 20:00] VITALS: BP 114/80
[2019-04-28] MEDS: TAMSULOSIN HCL 0.4MG SR CAPSULE PO SCH (20:38)
[2019-04-28] MEDS: DIPHENHYDRAMINE 50MG/ML VIAL IV PRN (22:13)
[2019-04-29] VITALS: BP 108/63
[2019-04-29] MEDS: VANCOMYCIN 1,250 MG in DEXT 5% WATER 250 ML IV SCH ×2 (01:49→15:24)
[2019-04-29 04:00] VITALS: BP 121/73
[2019-04-29] MEDS: DIPHENHYDRAMINE 50MG/ML VIAL IV PRN ×3 (04:29→22:27)
[2019-04-29] MEDS: OMEPRAZOLE 20MG CAPSULE EXTENDED RELEASE PO SCH (05:50)
[2019-04-29] MEDS: GABAPENTIN 300MG CAPSULE PO SCH (05:50)
[2019-04-29] MEDS: OXYCODONE HCL 5MG TABLET PO PRN ×4 (06:28→20:17)
[2019-04-29 08:00] VITALS: BP 103/69
[2019-04-29] MEDS: POLYETHYLENE GLYCOL 3350 (17GM) 1 DOSE PACK PO SCH (08:48)
[2019-04-29] MEDS: LISINOPRIL 5MG TABLET PO SCH (08:48)
[2019-04-29] MEDS: DOCUSATE SODIUM 100MG CAPSULE PO SCH ×2 (08:49→16:47)
[2019-04-29] MEDS: BISACODYL 10MG SUPP PR SCH (08:49)
[2019-04-29] MEDS: LIDOCAINE 5% PATCH TOP SCH (08:51)
[2019-04-29] MEDS: CARISOPRODOL 350 MG TABLET PO PRN ×2 (10:30→22:27)
[2019-04-29 12:00] VITALS: BP 105/64
[2019-04-29] MEDS ORDERED: LACTULOSE 20G/30ML UDC PO PRN (14:15)
[2019-04-29] MEDS ORDERED: NA PHOS,M-B/NA PHOS,DI-BA ENEMA 118ML PR NR (15:30)
[2019-04-29 16:44] VITALS: BP 110/65
[2019-04-29 20:00] VITALS: BP 103/73
[2019-04-29] MEDS: TAMSULOSIN HCL 0.4MG SR CAPSULE PO SCH (20:16)
[2019-04-29] MEDS: GABAPENTIN 400MG CAPSULE PO SCH (22:29)
[2019-04-30] VITALS: BP 107/74
[2019-04-30] MEDS: ONDANSETRON HCL 4MG/2ML INJ IV PRN (00:53)
[2019-04-30] MEDS: OXYCODONE HCL 5MG TABLET PO PRN ×5 (00:54→21:23)
[2019-04-30 04:00] VITALS: BP 104/71
[2019-04-30] MEDS: DIPHENHYDRAMINE 50MG/ML VIAL IV PRN ×3 (04:35→18:44)
[2019-04-30] MEDS: GABAPENTIN 400MG CAPSULE PO SCH ×3 (06:12→20:35)
[2019-04-30] MEDS: OMEPRAZOLE 20MG CAPSULE EXTENDED RELEASE PO SCH (06:12)
[2019-04-30] MEDS: DOCUSATE SODIUM 100MG CAPSULE PO SCH ×2 (08:51→18:29)
[2019-04-30] MEDS: LISINOPRIL 5MG TABLET PO SCH (08:53)
[2019-04-30] MEDS: LIDOCAINE 5% PATCH TOP SCH (08:55)
[2019-04-30] MEDS: POLYETHYLENE GLYCOL 3350 (17GM) 1 DOSE PACK PO SCH (08:55)
[2019-04-30 09:11] LABS: BASOPHILS % 0.7 % (0.0-2.0); EOSINOPHILS % 1.4 % (0.0-5.0); HEMATOCRIT. 35.7 % (42.0-52.0); HEMOGLOBIN. 11.4 g/dL (14.0-18.0); LYMPHOCYTES % 20.2 % (20.0-50.0); MEAN CORPUSCULAR HEMOGLOBIN 26.5 pg (28.0-32.0); MEAN PLATELET VOLUME 7.5 fl (7.4-10.4); MONOCYTES % 11.2 % (2.0-8.0); NEUTROPHILS % 66.5 % (40.0-76.0); PLATELET 261 x1000/uL (130-400)
[2019-04-30 09:25] LABS: CHLORIDE 106 mEq/L (98-107)
[2019-04-30 09:35] LABS: PHOSPHORUS 4.2 mg/dL (2.5-4.9)
[2019-04-30] MEDS: TAMSULOSIN HCL 0.4MG SR CAPSULE PO SCH (20:35)
[2019-04-30] MEDS: CARISOPRODOL 350 MG TABLET PO PRN (23:42)
[2019-04-30 23:44] VITALS: BP 107/77
[2019-05-01] MEDS: DIPHENHYDRAMINE 50MG/ML VIAL IV PRN ×3 (01:01→21:35)
[2019-05-01] MEDS: ONDANSETRON HCL 4MG/2ML INJ IV PRN ×2 (02:57→13:34)
[2019-05-01 04:00] VITALS: BP 103/74
[2019-05-01] MEDS: OXYCODONE HCL 5MG TABLET PO PRN ×3 (04:45→17:53)
[2019-05-01] MEDS: GABAPENTIN 400MG CAPSULE PO SCH ×3 (04:46→21:34)
[2019-05-01 08:00] VITALS: BP_SYST 110; BP_SYST 99; BP_DIAS 62; BP_DIAS 81
[2019-05-01] MEDS: LISINOPRIL 5MG TABLET PO SCH (08:48)
[2019-05-01] MEDS: FAMOTIDINE 20MG TABLET PO SCH ×2 (08:48→21:34)
[2019-05-01] MEDS: DOCUSATE SODIUM 100MG CAPSULE PO SCH ×2 (08:48→17:00)
[2019-05-01] MEDS: LIDOCAINE 5% PATCH TOP SCH (08:48)
[2019-05-01] MEDS: POLYETHYLENE GLYCOL 3350 (17GM) 1 DOSE PACK PO SCH (08:49)
[2019-05-01 12:00] VITALS: BP_SYST 110; BP_SYST 129; BP_DIAS 82; BP_DIAS 89
[2019-05-01 16:00] VITALS: BP_SYST 110; BP_SYST 120; BP_DIAS 82; BP_DIAS 89
[2019-05-01] MEDS: DOCUSATE SODIUM 100MG CAPSULE PO PRN (21:34)
[2019-05-01] MEDS: TAMSULOSIN HCL 0.4MG SR CAPSULE PO SCH (21:34)
[2019-05-02 01:27] VITALS: BP 101/76
[2019-05-02] MEDS: OXYCODONE HCL 5MG TABLET PO PRN ×2 (01:31→07:57)
[2019-05-02] MEDS: DIPHENHYDRAMINE 50MG/ML VIAL IV PRN (03:52)
[2019-05-02] MEDS: ONDANSETRON HCL 4MG/2ML INJ IV PRN (03:57)
[2019-05-02] MEDS: GABAPENTIN 400MG CAPSULE PO SCH (06:00)
[2019-05-02] MEDS: LIDOCAINE 5% PATCH TOP SCH (07:58)
[2019-05-02 08:00] VITALS: BP 101/71
== END 2019-05-02 09:05 | disposition home health service (06) | DRG 950 ==
LOC: ER 06:16 → 5WST 11:05 → EDBEDREQ 11:21 → EDBEDREQTM 11:22 → ENRESERV 19:24 → 6EST 04-15 11:44 → MICUNO 04-20 11:09 → 5WST 04-22 14:53
PROVIDERS: ADMIT Internal Medicine; ATTEND Internal Medicine
PROC: 009 Central Nervous System and Cranial Nerves, Drainage (ICD-10-PCS; 2019-04-16)
PROC: 009300Z Drainage of Intracranial Epidural Space with Drainage Device, Open Approach (ICD-10-PCS; principal; 2019-04-20)
DX: M94.0 Chondrocostal junction syndrome [Tietze] (principal); G82.50 Quadriplegia, unspecified; G93.40 Encephalopathy, unspecified; E46 Unspecified protein-calorie malnutrition; R13.10 Dysphagia, unspecified; G97.63 Postprocedural seroma of a nervous system organ or structure following a nervous system procedure; G97.51 Postprocedural hemorrhage of a nervous system organ or structure following a nervous system procedure; I42.9 Cardiomyopathy, unspecified; Y83.8 Other surgical procedures as the cause of abnormal reaction of the patient, or of later complication, without mention of misadventure at the time of the procedure; E78.5 Hyperlipidemia, unspecified; F17.210 Nicotine dependence, cigarettes, uncomplicated; I10 Essential (primary) hypertension; J45.909 Unspecified asthma, uncomplicated; D64.9 Anemia, unspecified; E78.00 Pure hypercholesterolemia, unspecified; M48.061 Spinal stenosis, lumbar region without neurogenic claudication; F14.10 Cocaine abuse, uncomplicated; F12.10 Cannabis abuse, uncomplicated; R47.1 Dysarthria and anarthria; R73.9 Hyperglycemia, unspecified; F11.10 Opioid abuse, uncomplicated; K56.41 Fecal impaction; K57.90 Diverticulosis of intestine, part unspecified, without perforation or abscess without bleeding; N40.0 Benign prostatic hyperplasia without lower urinary tract symptoms; K21.9 Gastro-esophageal reflux disease without esophagitis; M19.90 Unspecified osteoarthritis, unspecified site; Z98.1 Arthrodesis status; Z68.1 Body mass index [BMI] 19.9 or less, adult; Z88.0 Allergy status to penicillin; Z88.8 Allergy status to other drugs, medicaments and biological substances; Z79.01 Long term (current) use of anticoagulants; Z79.899 Other long term (current) drug therapy; Y92.89 Other specified places as the place of occurrence of the external cause
CPT/HCPCS: 20611; 36415; 71045; 72141; 72148; 74176; 80048; 80053; 80202; 80305; 83735; 83880; 84100; 84145; 84484; 85025; 87070; 87075; 92610; 93005; 93970; 96374; 97110; 97116; 97140; 97162; 97164; 97166; 97168; 97530; 97535; 99285; J1100; J1170; J1200; J1650; J2250; J2270; J2405; J2704; J2710; J3010; J3370; J3490; J7060; J7121; J7611; L0172

== ENCOUNTER 2019-06-17 19:48 | Inpatient (IN) | payer MEDICAID ==
[~2019-06-17] VITALS: Ht 167.6 cm; Wt 71.7 kg
[~2019-06-17 19:48] MED LIST changes: +ALPR2TAB2 MT; +CYCL5TAB MT; +GABA-290 PO; +LISI40TA4 MT
[2019-06-17] MEDS ORDERED: HYDROCODONE/ACETAMINOPHEN 5/325MG TABLET PO ONE (22:30)
[2019-06-17 23:19] LABS: HEMATOCRIT 34.6 % (42.0-52.0); HEMOGLOBIN 10.8 g/dL (14.0-18.0); MEAN CORPUSCULAR HEMOGLOBIN 26.7 pg (28.0-32.0); MEAN CORPUSCULAR VOLUME 85.2 fL (80.0-94.0); PLATELET 212 x1000/uL (130-400); RED BLOOD CELL COUNT 4.06 mill/uL (4.7-6.1); RED CELL DISTRIBUTION WIDTH 16.9 % (11.6-14.6)
[2019-06-17 23:25] LABS: CHLORIDE 110 mEq/L (98-107)
[2019-06-18 02:25] LABS: PARTIAL THROMBOPLASTIN TIME 31.1 sec (23.4-31.0); PROTHROMBIN TIME 10.1 sec (9.6-11.0)
[2019-06-18] MEDS ORDERED: ONDANSETRON HCL 4MG/2ML INJ IV PRN (05:45)
[2019-06-18] MEDS ORDERED: CLONIDINE 0.1MG TABLET PO PRN (05:45)
[2019-06-18] MEDS ORDERED: DOCUSATE SODIUM 100MG CAPSULE PO PRN (05:45)
[2019-06-18] MEDS ORDERED: MORPHINE SULFATE 2 MG/ML CPJ (NOT FOR IM USE) IV PRN (05:45)
[2019-06-18] MEDS ORDERED: ACETAMINOPHEN 325MG TABLET PO PRN (05:45)
[2019-06-18] MEDS: HYDROCODONE/ACETAMINOPHEN 5/325MG TABLET PO PRN ×3 (06:01→16:34)
[2019-06-18 10:00] VITALS: BP 126/82
[2019-06-18] MEDS: METOPROLOL TARTRATE 25MG TABLET PO SCH ×2 (10:32→21:00)
[2019-06-18] MEDS: AMLODIPINE 10MG TABLET PO SCH (10:32)
[2019-06-18] MEDS: ENOXAPARIN 40MG/0.4ML SYR SUBCUT SCH (10:33)
[2019-06-18] MEDS: TAMSULOSIN HCL 0.4MG SR CAPSULE PO SCH (10:41)
[2019-06-18 12:04] VITALS: BP 118/89
[2019-06-18] MEDS: GABAPENTIN 300MG CAPSULE PO SCH ×2 (13:20→21:42)
[2019-06-18] MEDS: MAGNESIUM/ALUMINUM HYDROXIDE/SIMETHICONE 30ML UDC PO PRN (16:34)
[2019-06-18 16:42] VITALS: BP 109/69
[2019-06-18 20:00] VITALS: BP 106/66
[2019-06-18] MEDS ORDERED: DIPHENHYDRAMINE 50MG CAPSULE PO SCH (21:00)
[2019-06-18] MEDS: CYCLOBENZAPRINE 10MG TABLET PO PRN (21:42)
[2019-06-18] MEDS: DIPHENHYDRAMINE 50MG CAPSULE PO PRN (21:42)
[2019-06-19 00:45] VITALS: BP 110/54
[2019-06-19 04:00] VITALS: BP 109/74
[2019-06-19] MEDS: GABAPENTIN 300MG CAPSULE PO SCH ×3 (06:17→21:14)
[2019-06-19 07:27] LABS: BASOPHILS % 0.5 % (0.0-2.0); EOSINOPHILS % 2.8 % (0.0-5.0); HEMATOCRIT. 35.1 % (42.0-52.0); HEMOGLOBIN. 11.4 g/dL (14.0-18.0); LYMPHOCYTES % 56.5 % (20.0-50.0); MEAN CORPUSCULAR HEMOGLOBIN 27.1 pg (28.0-32.0); MEAN CORPUSCULAR VOLUME 83.6 fL (80.0-94.0); MEAN PLATELET VOLUME 7.8 fl (7.4-10.4); MONOCYTES % 8.7 % (2.0-8.0); NEUTROPHILS % 31.5 % (40.0-76.0); PLATELET 242 x1000/uL (130-400); RED CELL DISTRIBUTION WIDTH 16.3 % (11.6-14.6)
[2019-06-19 08:11] VITALS: BP 129/90
[2019-06-19] MEDS: TAMSULOSIN HCL 0.4MG SR CAPSULE PO SCH (09:07)
[2019-06-19] MEDS: HYDROCODONE/ACETAMINOPHEN 5/325MG TABLET PO PRN ×3 (09:07→21:13)
[2019-06-19] MEDS: ENOXAPARIN 40MG/0.4ML SYR SUBCUT SCH (09:08)
[2019-06-19] MEDS: METOPROLOL TARTRATE 25MG TABLET PO SCH ×2 (09:08→21:14)
[2019-06-19] MEDS: AMLODIPINE 10MG TABLET PO SCH (09:08)
[2019-06-19 10:08] LABS: CHLORIDE 108 mEq/L (98-107)
[2019-06-19] MEDS: MAGNESIUM/ALUMINUM HYDROXIDE/SIMETHICONE 30ML UDC PO PRN (11:00)
[2019-06-19] MEDS: CYCLOBENZAPRINE 10MG TABLET PO PRN (11:00)
[2019-06-19 11:47] VITALS: BP 111/79
[2019-06-19 16:16] VITALS: BP 102/65
[2019-06-19 20:00] VITALS: BP 124/78
[2019-06-19] MEDS: DIPHENHYDRAMINE 50MG CAPSULE PO PRN (23:11)
[2019-06-20] VITALS: BP 101/69
[2019-06-20 04:00] VITALS: BP 117/75
[2019-06-20] MEDS: GABAPENTIN 300MG CAPSULE PO SCH ×2 (05:57→13:38)
[2019-06-20 08:00] VITALS: BP 124/79
[2019-06-20] MEDS ORDERED: HYDR-3280 PO (09:49)
[2019-06-20] MEDS: AMLODIPINE 10MG TABLET PO SCH (10:06)
[2019-06-20] MEDS: MAGNESIUM/ALUMINUM HYDROXIDE/SIMETHICONE 30ML UDC PO PRN (10:06)
[2019-06-20] MEDS: CYCLOBENZAPRINE 10MG TABLET PO PRN (10:06)
[2019-06-20] MEDS: TAMSULOSIN HCL 0.4MG SR CAPSULE PO SCH (10:07)
[2019-06-20] MEDS: METOPROLOL TARTRATE 25MG TABLET PO SCH (10:07)
[2019-06-20] MEDS: ENOXAPARIN 40MG/0.4ML SYR SUBCUT SCH (10:07)
[2019-06-20 10:10] VITALS: BP 124/79
== END 2019-06-20 14:38 | disposition home or self-care (01) | DRG 58 ==
LOC: ER 19:48 → EDBEDREQ 23:03 → 6WST 06-18 01:23 → EDBEDREQTM 06-18 01:29 → EDBEDREQDT 06-18 01:29 → EDBEDREQSVC 06-18 01:29 → EDBEDREQ 06-18 01:29 → ENRESERV 06-18 07:33
PROVIDERS: ADMIT Hospitalist; ATTEND Hospitalist
DX: R20.0 Anesthesia of skin (principal); F17.200 Nicotine dependence, unspecified, uncomplicated; R53.1 Weakness; F31.9 Bipolar disorder, unspecified; I10 Essential (primary) hypertension; J45.909 Unspecified asthma, uncomplicated; K21.9 Gastro-esophageal reflux disease without esophagitis; M19.90 Unspecified osteoarthritis, unspecified site; W18.39XA Other fall on same level, initial encounter; Y93.89 Activity, other specified; Y92.89 Other specified places as the place of occurrence of the external cause; Y99.8 Other external cause status; Z88.0 Allergy status to penicillin; Z88.8 Allergy status to other drugs, medicaments and biological substances; Z79.01 Long term (current) use of anticoagulants; Z79.899 Other long term (current) drug therapy
CPT/HCPCS: 36415; 72040; 72141; 80048; 80053; 84484; 85025; 85027; 86850; 86900; 93970; 96372; 97162; 99285; J1650; J2405; Q0163

== ENCOUNTER 2019-06-21 22:28 | Emergency (ER) | payer MEDICAID ==
[~2019-06-21] VITALS: Ht 167.6 cm; Wt 66.0 kg
[~2019-06-21 22:28] MED LIST changes: +HYDR-3280 PO
[2019-06-21] MEDS ORDERED: HYDROCODONE/ACETAMINOPHEN 5/325MG TABLET PO ONE (23:30)
[2019-06-21 23:58] VITALS: BP 122/76
== END 2019-06-21 23:59 | disposition home or self-care (01) ==
LOC: ER 22:28
DX: M25.511 Pain in right shoulder (principal); M75.101 Unspecified rotator cuff tear or rupture of right shoulder, not specified as traumatic; J45.909 Unspecified asthma, uncomplicated; I10 Essential (primary) hypertension; Z88.0 Allergy status to penicillin; Z88.6 Allergy status to analgesic agent; Z88.9 Allergy status to unspecified drugs, medicaments and biological substances; Z88.1 Allergy status to other antibiotic agents; Z79.899 Other long term (current) drug therapy
CPT/HCPCS: 99283

== ENCOUNTER 2022-09-02 03:10 | Emergency (ER) | payer MEDICARE, MEDICAID ==
[~2022-09-02] VITALS: Ht 170.2 cm; Wt 77.0 kg
[~2022-09-02 03:10] MED LIST changes: -ALBUTEROL INH; -ALPR2TAB2 MT; -CARI350T28 PO; -CLOP75TA15 PO; -CYCL5TAB MT; -DIPH25CA83 PO; -HYDR-3280 PO; +HYDR-4350 PO; -HYDR-523 PO; +LISI40TA13 MT; -LISI40TA4 MT; -OMEP20TA2 PO; +OMEP20TA23 PO; -TRAM50TA94 PO
[2022-09-02] MEDS ORDERED: MORPHINE SULFATE 4 MG/ML CPJ (NOT FOR IM USE) IV STA (03:59)
[2022-09-02] MEDS ORDERED: ONDANSETRON HCL 4MG/2ML INJ IV STA (03:59)
[2022-09-02] MEDS ORDERED: SODIUM CHLORIDE 0.9% 1,000 ML IV ONE (04:00)
[2022-09-02 05:24] LABS: CHLORIDE 110 mEq/L (98-107)
[2022-09-02] MEDS ORDERED: ONDANSETRON HCL 4MG/2ML INJ IV NR (05:45)
[2022-09-02] MEDS ORDERED: MORPHINE SULFATE 4 MG/ML CPJ (NOT FOR IM USE) IV NR (05:45)
[2022-09-02] MEDS ORDERED: HYDR-4001 MT (05:49)
[2022-09-02 06:02] VITALS: BP 139/83
== END 2022-09-02 08:23 | disposition home or self-care (01) ==
LOC: ER 04:48
DX: S29.9XXA Unspecified injury of thorax, initial encounter (principal); M13.811 Other specified arthritis, right shoulder; J45.909 Unspecified asthma, uncomplicated; F31.9 Bipolar disorder, unspecified; I10 Essential (primary) hypertension; Z86.73 Personal history of transient ischemic attack (TIA), and cerebral infarction without residual deficits; Z79.899 Other long term (current) drug therapy; Z88.0 Allergy status to penicillin; Z88.5 Allergy status to narcotic agent; Z88.8 Allergy status to other drugs, medicaments and biological substances; X94.0XXA Assault by shotgun, initial encounter; Y93.89 Activity, other specified; Y92.89 Other specified places as the place of occurrence of the external cause; Y99.8 Other external cause status
CPT/HCPCS: 36415; 71045; 71250; 80048; 84484; 86850; 86900; 86901; 96361; 96374; 96375; 99291; J2270; J2405; J7030